=== PATIENT | male | born 1990 | race Caucasian/White ===

== ENCOUNTER 2023-02-18 14:53 | Emergency (ER) | payer MEDICAID ==
[~2023-02-18] VITALS: Ht 185.4 cm; Wt 110.0 kg
[2023-02-18 15:00] VITALS: BP 125/78
[2023-02-18] MEDS ORDERED: LIDOcaine 1% 30ml preserv. free vial IJ ONE (16:25)
== END 2023-02-18 17:28 | disposition home or self-care (01) ==
LOC: ER 14:55
DX: S61.214A Laceration without foreign body of right ring finger without damage to nail, initial encounter (principal); W45.8XXA Other foreign body or object entering through skin, initial encounter; Y93.89 Activity, other specified; Y92.89 Other specified places as the place of occurrence of the external cause; Y99.8 Other external cause status
CPT/HCPCS: 12001; 99282; A6222; J3490; A6258